=== PATIENT | female | born 1990 | race African-American/Black ===

== ENCOUNTER 2017-10-27 13:37 | Emergency (ER) | payer MEDICAID ==
[~2017-10-27] VITALS: Ht 165.1 cm; Wt 103.0 kg
[~2017-10-27 13:37] MED LIST: FERR-43 PO
[2017-10-27 13:51] VITALS: BP 153/94
== END 2017-10-27 19:27 | disposition left against medical advice (07) ==
LOC: ER 14:36
DX: Z53.21 Procedure and treatment not carried out due to patient leaving prior to being seen by health care provider (principal)

== ENCOUNTER 2022-07-14 22:58 | Inpatient (IN) | payer MEDICAID, OTHER ==
[~2022-07-14] VITALS: Ht 167.6 cm; Wt 93.0 kg
[2022-07-15] MEDS ORDERED: LORAZEPAM 1MG TABLET PO ONE (00:15)
[2022-07-15 03:15] LABS: BASOPHILS % 0.7 % (0.0-2.0); EOSINOPHILS % 0.5 % (0.0-5.0); HEMATOCRIT. 34.7 % (36.0-48.0); HEMOGLOBIN. 11.3 g/dL (12.0-16.0); LYMPHOCYTES % 23.6 % (20.0-50.0); MEAN CORPUSCULAR HEMOGLOBIN 27.3 pg (28.0-32.0); MEAN CORPUSCULAR VOLUME 83.6 fL (81.0-99.0); MEAN PLATELET VOLUME 9.3 fl (7.4-10.4); MONOCYTES % 7.6 % (2.0-8.0); NEUTROPHILS % 67.6 % (40.0-76.0); PLATELET 197 x1000/uL (130-400); RED BLOOD CELL COUNT 4.15 mill/uL (4.2-5.4)
[2022-07-15 03:19] LABS: CHLORIDE 93 mEq/L (98-107)
[2022-07-15 03:38] LABS: HCG SCREEN NEGATIVE
[2022-07-15] MEDS ORDERED: ENALAPRIL 1.25MG/ML VIAL 1ML IV NR (05:00)
[2022-07-15] MEDS ORDERED: ENALAPRIL 2.5MG/2ML VIAL 2ML IV ONE (05:00)
[2022-07-15 09:30] VITALS: BP 169/108
[2022-07-15 12:00] VITALS: BP 177/105
[2022-07-15] MEDS ORDERED: ALBU6.7H3 INH (12:26)
[2022-07-15 13:00] VITALS: BP 169/108
[2022-07-15] MEDS: AMLODIPINE 10MG TABLET PO SCH (13:06)
[2022-07-15] MEDS: CLONIDINE 0.1MG TABLET PO PRN (13:07)
[2022-07-15] MEDS ORDERED: POTASSIUM CHLORIDE 20MEQ TABLET SR PO SCH (13:30)
[2022-07-15] MEDS: LOSARTAN POTASSIUM 100 MG TABLET PO SCH (13:36)
[2022-07-15 16:00] VITALS: BP 161/109
[2022-07-15] MEDS: HYDRALAZINE HCL 100MG TABLET PO SCH (17:29)
[2022-07-15 17:38] LABS: *AMPHETAMINES SCREEN URINE NEGATIVE (NEGATIVE); *BARBITURATES SCREEN URINE NEGATIVE (NEGATIVE); *BENZODIAZEPINES SCREEN URINE NEGATIVE (NEGATIVE); *COCAINE SCREEN URINE NEGATIVE (NEGATIVE); CANNABINOID URINE SCREEN NEGATIVE (NEGATIVE); METHADONE URINE SCREEN NEGATIVE (NEGATIVE); OPIATES URINE SCREEN NEGATIVE (NEGATIVE); PHENCYCLIDINE URINE SCREEN NEGATIVE (NEGATIVE)
[2022-07-15 20:00] VITALS: BP 143/93
[2022-07-16] VITALS: BP 166/97
[2022-07-16] MEDS: CLONIDINE 0.1MG TABLET PO PRN (00:25)
[2022-07-16] MEDS: HYDRALAZINE HCL 100MG TABLET PO SCH ×2 (00:25→08:45)
[2022-07-16 04:00] VITALS: BP 139/77
[2022-07-16] MEDS ORDERED: LOSA100T3 PO (08:41)
[2022-07-16] MEDS ORDERED: AMLO10TA80 PO (08:41)
[2022-07-16] MEDS ORDERED: HYDR100T26 PO (08:41)
[2022-07-16] MEDS: LOSARTAN POTASSIUM 100 MG TABLET PO SCH (08:45)
[2022-07-16] MEDS: AMLODIPINE 10MG TABLET PO SCH (08:45)
[2022-07-16 08:53] VITALS: BP 152/102
[2022-07-16 11:57] VITALS: BP 141/78
[2022-07-16 12:11] VITALS: BP 141/78
== END 2022-07-16 13:05 | disposition home or self-care (01) | DRG 199 ==
LOC: ER 22:58 → 8WST 07-15 05:52 → EDBEDREQ 07-15 05:54 → EDBEDREQTM 07-15 05:54 → ENRESERV 07-15 07:28 → CANRESERV 07-15 08:00 → ENRESERV 07-15 08:08
PROVIDERS: ADMIT Internal Medicine; ATTEND Internal Medicine
DX: I16.0 Hypertensive urgency (principal); E87.1 Hypo-osmolality and hyponatremia; E66.9 Obesity, unspecified; E87.6 Hypokalemia; R74.01 Elevation of levels of liver transaminase levels; I10 Essential (primary) hypertension; J45.909 Unspecified asthma, uncomplicated; F17.210 Nicotine dependence, cigarettes, uncomplicated; Z88.8 Allergy status to other drugs, medicaments and biological substances; Z68.33 Body mass index [BMI] 33.0-33.9, adult; Z98.891 History of uterine scar from previous surgery
CPT/HCPCS: 36415; 71045; 76700; 80053; 80305; 84484; 84703; 85025; 85379; 93005; 99291; J3490

== ENCOUNTER 2022-09-04 12:26 | Emergency (ER) | payer MEDICAID ==
[~2022-09-04] VITALS: Ht 170.2 cm; Wt 82.0 kg
[~2022-09-04 12:26] MED LIST changes: +ALBU6.7H3 INH; +AMLO10TA80 PO; +HYDR100T26 PO; +LOSA100T3 PO
[2022-09-04] MEDS ORDERED: DIAZEPAM 5 MG/ML 2ML CPJ IV ONE ×2 (15:00→17:45)
[2022-09-04] MEDS ORDERED: SODIUM CHLORIDE 0.9% 1,000 ML IV ONE (15:00)
[2022-09-04 15:42] LABS: BASOPHILS % 1.5 % (0.0-2.0); EOSINOPHILS % 0.1 % (0.0-5.0); HEMATOCRIT. 34.7 % (36.0-48.0); HEMOGLOBIN. 11.4 g/dL (12.0-16.0); LYMPHOCYTES % 20.2 % (20.0-50.0); MEAN PLATELET VOLUME 8.4 fl (7.4-10.4); MONOCYTES % 4.4 % (2.0-8.0); NEUTROPHILS % 73.8 % (40.0-76.0); PLATELET 326 x1000/uL (130-400); RED BLOOD CELL COUNT 4.08 mill/uL (4.2-5.4); RED CELL DISTRIBUTION WIDTH 18.8 % (11.6-14.6)
[2022-09-04] MEDS ORDERED: CHLO25CA10 PO (18:00)
[2022-09-04] MEDS ORDERED: MULT1TAB85 MT (18:07)
[2022-09-04 19:08] VITALS: BP 188/112
[2022-09-04 19:30] LABS: *AMPHETAMINES SCREEN URINE NEGATIVE (NEGATIVE); *BARBITURATES SCREEN URINE NEGATIVE (NEGATIVE); *BENZODIAZEPINES SCREEN URINE NEGATIVE (NEGATIVE); *COCAINE SCREEN URINE NEGATIVE (NEGATIVE); CANNABINOID URINE SCREEN NEGATIVE (NEGATIVE); METHADONE URINE SCREEN NEGATIVE (NEGATIVE); OPIATES URINE SCREEN NEGATIVE (NEGATIVE); PHENCYCLIDINE URINE SCREEN NEGATIVE (NEGATIVE)
[2022-09-04 22:37] LABS: CHLORIDE 97 mEq/L (98-107)
[2022-09-04 22:45] LABS: ETHANOL BLOOD < 10 mg/dL
== END 2022-09-04 19:11 | disposition home or self-care (01) ==
LOC: ER 12:26
DX: F10.239 Alcohol dependence with withdrawal, unspecified (principal); I16.0 Hypertensive urgency; Y90.0 Blood alcohol level of less than 20 mg/100 ml; J45.909 Unspecified asthma, uncomplicated
CPT/HCPCS: 36415; 80053; 80305; 80320; 81025; 85025; 96361; 96374; 96376; 99284; J3360; G0480

== ENCOUNTER 2022-12-13 16:42 | Emergency (ER) | payer MEDICAID ==
[~2022-12-13] VITALS: Ht 165.1 cm; Wt 96.0 kg
[~2022-12-13 16:42] MED LIST changes: +CHLO25CA10 PO; -LOSA100T3 PO; +LOSA100T4 PO; +MULT1TAB85 MT
[2022-12-13 17:01] VITALS: BP 164/95
[2022-12-13] MEDS ORDERED: IBUP-2030 PO (18:53)
[2022-12-13] MEDS ORDERED: AMOX1TAB16 PO (18:53)
== END 2022-12-13 19:17 | disposition home or self-care (01) ==
LOC: ER 16:42
DX: K04.7 Periapical abscess without sinus (principal)
CPT/HCPCS: 99283

== ENCOUNTER 2023-07-06 15:06 | Emergency (ER) | payer MEDICAID, OTHER ==
[~2023-07-06] VITALS: Ht 167.6 cm; Wt 96.0 kg
[~2023-07-06 15:06] MED LIST changes: +AMOX1TAB16 MT; +AMOX1TAB16 PO; +IBUP-2030 PO; +LOSA-415 PO; -LOSA100T4 PO; +NAPR-1176 MT
[2023-07-06 15:11] VITALS: BP 150/98; PULSE 98; RESP 16; TEMP 98.1; O2SAT 97
== END 2023-07-06 17:23 | disposition left against medical advice (07) ==
LOC: ER 15:06
DX: F41.0 Panic disorder [episodic paroxysmal anxiety] (principal); J45.909 Unspecified asthma, uncomplicated; I10 Essential (primary) hypertension; Z98.51 Tubal ligation status; Z88.5 Allergy status to narcotic agent; Z79.899 Other long term (current) drug therapy
CPT/HCPCS: 99283

== ENCOUNTER 2024-07-12 08:27 | Emergency (ER) | payer SELFPAY ==
[~2024-07-12] VITALS: Ht 167.6 cm; Wt 100.0 kg
[~2024-07-12 08:27] MED LIST changes: +HYDR100T11 PO; -HYDR100T26 PO
[2024-07-12 08:31] VITALS: O2SAT 100
[2024-07-12] MEDS ORDERED: IBUP-2030 MT (09:34)
[2024-07-12] MEDS ORDERED: CLIN-194 MT (09:34)
[2024-07-12] MEDS: CLINDAMYCIN HCL 150MG CAPSULE PO STA (10:07)
[2024-07-12 10:10] VITALS: BP 182/102; PULSE 95; RESP 18; TEMP 36.72516; O2SAT 100
== END 2024-07-12 10:11 | disposition home or self-care (01) ==
LOC: ER 08:27
DX: K04.7 Periapical abscess without sinus (principal); F41.9 Anxiety disorder, unspecified; J45.909 Unspecified asthma, uncomplicated; I10 Essential (primary) hypertension; Z88.5 Allergy status to narcotic agent; Z98.51 Tubal ligation status; Z79.899 Other long term (current) drug therapy; Z98.890 Other specified postprocedural states
CPT/HCPCS: 99283